=== PATIENT | female | born 1995 | race Caucasian/White ===

== ENCOUNTER 2020-05-04 19:03 | Emergency (ER) | payer MEDICAID ==
--- NOTE | 2020-05-04 19:54 | EDM.PDOC ---
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 Patient is at 20 weeks AOG and has not felt her baby moving for the past 2-3 days. There is no associated vaginal bleeding. She lost her previous pregnancies and is just concerned. - Related Data Allergies Allergy/AdvReac Type Severity Reaction Status Date / Time No Known Allergies Allergy Verified 05/04/20 19:11 Home Meds: Home Meds Pnv No.95/Ferrous Fum/Folic AC [ Caplet] 1 tab PO DAILY 05/04/20 [History] Past Medical History Psychiatric History: Reports: Anxiety, Depression Social & Family History - Tobacco Use Smoking Status *Q: Unknown Ever Smoked Second Hand Smoke Exposure: Yes ED ROS GENERAL - Review of Systems Review Of Systems: See Below Constitutional: Reports: No Symptoms HEENT: Reports: No Symptoms Respiratory: Reports: No Symptoms Cardiovascular: Reports: No Symptoms Endocrine: Reports: No Symptoms GI/Abdominal: Reports: No Symptoms : Reports: No Symptoms Musculoskeletal: Reports: No Symptoms Skin: Reports: No Symptoms Neurological: Reports: No Symptoms Psychiatric: Reports: No Symptoms ED EXAM - Physical Exam Exam: See Below Exam Limited By: No Limitations General Appearance: Alert, No Apparent Distress Eye Exam: Bilateral Eye: Periorbital Changes Ears: Normal External Exam, Normal Canal Nose: Normal Inspection, Normal Mucosa Throat/Mouth: Normal Inspection, Normal Lips Head: Atraumatic, Normocephalic Neck: Normal Inspection, Supple, Non-Tender, Full Range of Motion Respiratory/Chest: No Respiratory Distress, Lungs Clear, Normal Breath Sounds Cardiovascular: Normal Peripheral Pulses, Regular Rate, Rhythm, No Edema, No Gallop GI/Abdominal Exam: Normal Bowel Sounds Back Exam: Normal Inspection, Full Range of Motion Course - Vital Signs Text/Narrative:: OB US-present FHT and movements Last Recorded V/S: Last Vital Signs Temp 36.8 C 05/04/20 19:17 Pulse 99 05/04/20 19:17 Resp 16 05/04/20 19:17 BP 127/81 05/04/20 19:17 Pulse Ox 99 05/04/20 19:17 Departure - Departure Time of Disposition: 20:00 Disposition: Home, Self-Care 01 Condition: Good Clinical Impression: care in second trimester - Discharge Information Instructions: Second Trimester of , [id number] Referrals: Shyanne Sanchez RN [Registered Nurse] - Forms: ED Department Discharge Additional Instructions: Please read discharge instructions on -second trimester Your baby's heart beat was detected, that's reassuring Keep your upcoming visit Sepsis Event Note (ED) - Evaluation Sepsis Screening Result: No Definite Risk
--- NOTE | 2020-05-05 10:44 | US ---
INDICATION: Unable to hear heart tones or feel movements. OB ULTRASOUND LIMITED: Utilizing 2D real-time and M-mode, examination of the intrauterine gestation was obtained and revealed a single longitudinally lying cephalic presenting fetus with a regular heart rate of 146 bpm. A normal amount of amniotic fluid was noted. Cervix appears closed. movements were also noted. MTDD
== END 2020-05-04 20:15 | disposition home or self-care (01) ==
LOC: FB.ED 19:03
DX: Z34.82 Encounter for supervision of other normal pregnancy, second trimester (principal); Z77.22 Contact with and (suspected) exposure to environmental tobacco smoke (acute) (chronic); Z3A.20 20 weeks gestation of pregnancy
CPT/HCPCS: 76815; 99282; 99284-25

== ENCOUNTER 2021-10-23 17:59 | Emergency (ER) | payer MEDICAID ==
[2021-10-23] MEDS ORDERED: Lactated Ringers 1,000 ML IV ONE (18:29)
[2021-10-23] MEDS ORDERED: diphenhydrAMINE 25 MG Cap PO ONE (18:30)
[2021-10-23] MEDS ORDERED: Ketorolac 30 MG/ML SDV IVPUSH ONE (18:30)
[2021-10-23] MEDS ORDERED: SUMAtriptan 50 MG Tab PO ONE (18:31)
[2021-10-23] MEDS ORDERED: Ondansetron 4 MG/2 ML SDV IVPUSH ONE (18:31)
[2021-10-23] MEDS ORDERED: Acetaminophen 500 MG Tab PO PRN (18:32)
[2021-10-23] MEDS ORDERED: Acetaminophen 500 MG Tab PO ONE (18:33)
== END 2021-10-23 18:40 | disposition left against medical advice (07) ==
LOC: FB.ED 17:59
DX: G43.109 Migraine with aura, not intractable, without status migrainosus (principal); Z79.899 Other long term (current) drug therapy
CPT/HCPCS: 99282; 99284

== ENCOUNTER 2024-05-25 12:47 | Emergency (ER) | payer MEDICAID | END 2024-05-25 13:35 | disposition home or self-care (01) | LOC: FB.ED 12:47 | DX: S06.0X9A Concussion with loss of consciousness of unspecified duration, initial encounter (principal); J45.909 Unspecified asthma, uncomplicated; W22.03XA Walked into furniture, initial encounter | CPT/HCPCS: 99283; 99284 ==

== ENCOUNTER 2024-05-29 10:11 | Emergency (ER) | payer MEDICAID | END 2024-05-29 11:00 | disposition home or self-care (01) | LOC: FB.ED 10:11 | DX: S06.0X9A Concussion with loss of consciousness of unspecified duration, initial encounter (principal); G44.209 Tension-type headache, unspecified, not intractable; M62.838 Other muscle spasm; W22.8XXA Striking against or struck by other objects, initial encounter | CPT/HCPCS: 99283 ==